=== PATIENT | male | born 1940 | race Caucasian/White ===

== ENCOUNTER 2018-02-16 10:54 | Observation (INO) | payer MEDICARE ==
[~2018-02-16] VITALS: Ht 154.9 cm; Wt 68.8 kg
[~2018-02-16 10:54] MED LIST: ALBU90OI INH; AMOCLA875 PO; ASPI325 PO; ATOR20 PO; BENZ100A PO; CARV6.25 PO; CEPH500 PO; CITA10S PO; CLOP75 PO; FURO40 PO; GEMF600 PO; GLIP10 PO; GLIP2.5ER PO; INSN100I SC; LEVE500 PO; LISI20 PO; LISI5 PO; METF500 PO; NICO21TP TOP; PANT40 PO; POTA10T PO; POTCHL20ER PO; Prednisone20 MG PO; Seroquel50 MG PO; Zithromax250 MG PO
[2018-02-16 12:16] LABS: BASOPHILS ABSOLUTE AUTO 0.02 K/mm3 (0.00-0.23); BASOPHILS PERCENT AUTO 0 % (0-2); EOSINOPHILS PERCENT AUTO 0 % (0-6); Hematocrit 42.5 % (37.0-53.0); Hemoglobin 14.5 g/dL (13.5-17.5); IMMATURE GRAN ABSOLUTE AUTO 0.07 K/mm3 (0.00-0.10); IMMATURE GRAN PERCENT AUTO 1 % (0-1); LYMPHOCYTES ABSOLUTE AUTO 0.95 K/mm3 (0.84-5.20); LYMPHOCYTES PERCENT AUTO 8 % (21-46); MONOCYTES ABSOLUTE AUTO 0.98 K/mm3 (0.16-1.47); MONOCYTES PERCENT AUTO 8 % (4-13); Mean Corpuscular HGB 30.6 pg (26.0-34.0); Mean Corpuscular HGB Conc 34.1 g/dL (31.5-36.5); Mean Corpuscular Volume 90 fL (80-100); Mean Platelet Volume 11.4 fL (9.1-12.4); NEUTROPHILS ABSOLUTE AUTO 10.14 K/mm3 (1.96-9.15); NEUTROPHILS PERCENT AUTO 83 % (41-73); Platelet Count 286 K/mm3 (150-400); RDW Coefficient Variation 12.7 % (11.7-14.2); RDW Standard Deviation 42.5 fL (35.1-46.3); Red Blood Cell Count 4.74 M/mm3 (4.30-5.90); White Blood Cell Count 12.16 K/mm3 (4.00-11.30)
[2018-02-16] MEDS ORDERED: Carvedilol12.5 MG PO (12:27)
[2018-02-16] MEDS ORDERED: PRED10 PO (12:27)
[2018-02-16] MEDS ORDERED: LEVFLO500 PO (12:27)
[2018-02-16] MEDS ORDERED: Citalopram HBr10 MG PO (12:27)
[2018-02-16 12:37] LABS: Albumin/Globulin Ratio 0.6 (0.8-1.8); Bilirubin, Total 0.4 mg/dL (0.1-1.0); Bun/Creatinine Ratio 33.1 (12.0-20.0); Calcium, Blood 9.1 mg/dL (8.5-10.1); Creatinine, Blood 1.27 mg/dL (0.60-1.20); Globulin, Blood 4.7 g/dL (2.2-4.0); Potassium, Blood 3.9 mmol/L (3.5-5.5); Total Protein, Blood 7.7 g/dL (6.4-8.2); Troponin I 0.021 ng/mL (0.000-0.040)
[2018-02-17 05:33] LABS: Hematocrit 38.7 % (37.0-53.0); Mean Corpuscular HGB 30.2 pg (26.0-34.0); Mean Corpuscular HGB Conc 33.6 g/dL (31.5-36.5); Mean Corpuscular Volume 90 fL (80-100); Mean Platelet Volume 11.3 fL (9.1-12.4); Platelet Count 238 K/mm3 (150-400); RDW Coefficient Variation 12.8 % (11.7-14.2); RDW Standard Deviation 42.6 fL (35.1-46.3); White Blood Cell Count 9.95 K/mm3 (4.00-11.30)
[2018-02-17 06:01] LABS: Bun/Creatinine Ratio 27.6 (12.0-20.0); Calcium, Blood 8.4 mg/dL (8.5-10.1); Creatinine, Blood 1.27 mg/dL (0.60-1.20); Potassium, Blood 3.9 mmol/L (3.5-5.5)
[2018-02-17] MEDS ORDERED: LEVFLO500 PO (10:46)
== END 2018-02-17 13:27 | disposition home health service (06) ==
LOC: ER 10:54 → MEDS 10:55
PROVIDERS: Emergency Medicine; Internal Medicine
DX: J18.9 Pneumonia, unspecified organism (principal); J40 Bronchitis, not specified as acute or chronic; I42.0 Dilated cardiomyopathy; I63.9 Cerebral infarction, unspecified; Q90.9 Down syndrome, unspecified; E11.9 Type 2 diabetes mellitus without complications; E78.5 Hyperlipidemia, unspecified; F17.200 Nicotine dependence, unspecified, uncomplicated; D72.829 Elevated white blood cell count, unspecified; N17.9 Acute kidney failure, unspecified; I11.0 Hypertensive heart disease with heart failure; I50.9 Heart failure, unspecified; I25.10 Atherosclerotic heart disease of native coronary artery without angina pectoris; Z79.2 Long term (current) use of antibiotics; Z95.0 Presence of cardiac pacemaker; Z79.899 Other long term (current) drug therapy; Z95.5 Presence of coronary angioplasty implant and graft
CPT/HCPCS: 36415; 71046; 80048; 80053; 82947; 83605; 83880; 84484; 85025; 85027; 87040; 93005; 93010; 94640; 96365; 96372; 96376; 99285; G0378; J1650; J1956; J7030

== ENCOUNTER 2018-09-18 01:06 | Emergency (ER) | payer MEDICARE ==
[~2018-09-18] VITALS: Ht 165.1 cm; Wt 77.1 kg
[~2018-09-18 01:06] MED LIST changes: +Carvedilol12.5 MG PO; +Citalopram HBr10 MG PO; +LEVFLO500 PO; +PRED10 PO
[2018-09-18 02:18] LABS: BASOPHILS ABSOLUTE AUTO 0.05 K/mm3 (0.00-0.23); BASOPHILS PERCENT AUTO 1 % (0-2); EOSINOPHILS ABSOLUTE AUTO 0.14 K/mm3 (0.00-0.68); EOSINOPHILS PERCENT AUTO 2 % (0-6); Hematocrit 42.9 % (37.0-53.0); Hemoglobin 13.8 g/dL (13.5-17.5); IMMATURE GRAN ABSOLUTE AUTO 0.03 K/mm3 (0.00-0.10); IMMATURE GRAN PERCENT AUTO 0 % (0-1); LYMPHOCYTES ABSOLUTE AUTO 1.31 K/mm3 (0.84-5.20); LYMPHOCYTES PERCENT AUTO 15 % (21-46); MONOCYTES ABSOLUTE AUTO 0.69 K/mm3 (0.16-1.47); MONOCYTES PERCENT AUTO 8 % (4-13); Mean Corpuscular HGB Conc 32.2 g/dL (31.5-36.5); Mean Corpuscular Volume 93 fL (80-100); Mean Platelet Volume 11.9 fL (9.1-12.4); NEUTROPHILS ABSOLUTE AUTO 6.67 K/mm3 (1.96-9.15); NEUTROPHILS PERCENT AUTO 75 % (41-73); Platelet Count 196 K/mm3 (150-400); RDW Coefficient Variation 14.4 % (11.7-14.2); RDW Standard Deviation 49.1 fL (35.1-46.3); White Blood Cell Count 8.89 K/mm3 (4.00-11.30)
[2018-09-18 02:31] LABS: Albumin, Blood 3.2 g/dL (3.4-5.0); Albumin/Globulin Ratio 0.9 (0.8-1.8); Bun/Creatinine Ratio 17.3 (12.0-20.0); Calcium, Blood 8.3 mg/dL (8.5-10.1); Creatinine, Blood 1.33 mg/dL (0.60-1.20); Globulin, Blood 3.5 g/dL (2.2-4.0); Magnesium, Blood 2.1 mg/dL (1.6-2.4); Potassium, Blood 3.8 mmol/L (3.5-5.5); Total Protein, Blood 6.7 g/dL (6.4-8.2); Troponin I 0.035 ng/mL (0.000-0.040)
[2018-09-18] MEDS ORDERED: Carvedilol12.5 MG PO (03:02)
[2018-09-18] MEDS ORDERED: Lasix20 MG PO (03:41)
== END 2018-09-18 06:19 | disposition home or self-care (01) ==
LOC: ER 01:06
PROVIDERS: Emergency Medicine
DX: I11.0 Hypertensive heart disease with heart failure (principal); I50.9 Heart failure, unspecified; E11.9 Type 2 diabetes mellitus without complications; I25.10 Atherosclerotic heart disease of native coronary artery without angina pectoris; F17.200 Nicotine dependence, unspecified, uncomplicated; Z79.899 Other long term (current) drug therapy
CPT/HCPCS: 71046; 80053; 83735; 83880; 84484; 85025; 93005; 93010; 96374; 99285-25; J1940

== ENCOUNTER 2018-09-23 22:59 | Observation (INO) | payer MEDICARE ==
[~2018-09-23] VITALS: Ht 165.1 cm; Wt 72.6 kg
[~2018-09-23 22:59] MED LIST changes: +Lasix20 MG PO
[2018-09-23 23:46] LABS: BASOPHILS ABSOLUTE AUTO 0.06 K/mm3 (0.00-0.23); BASOPHILS PERCENT AUTO 1 % (0-2); EOSINOPHILS ABSOLUTE AUTO 0.18 K/mm3 (0.00-0.68); EOSINOPHILS PERCENT AUTO 2 % (0-6); Hematocrit 44.3 % (37.0-53.0); Hemoglobin 13.8 g/dL (13.5-17.5); IMMATURE GRAN ABSOLUTE AUTO 0.02 K/mm3 (0.00-0.10); IMMATURE GRAN PERCENT AUTO 0 % (0-1); LYMPHOCYTES ABSOLUTE AUTO 0.95 K/mm3 (0.84-5.20); LYMPHOCYTES PERCENT AUTO 11 % (21-46); MONOCYTES ABSOLUTE AUTO 0.62 K/mm3 (0.16-1.47); MONOCYTES PERCENT AUTO 7 % (4-13); Mean Corpuscular HGB 29.1 pg (26.0-34.0); Mean Corpuscular HGB Conc 31.2 g/dL (31.5-36.5); Mean Corpuscular Volume 94 fL (80-100); Mean Platelet Volume 11.2 fL (9.1-12.4); NEUTROPHILS PERCENT AUTO 78 % (41-73); Platelet Count 207 K/mm3 (150-400); RDW Coefficient Variation 14.4 % (11.7-14.2); RDW Standard Deviation 49.7 fL (35.1-46.3); Red Blood Cell Count 4.74 M/mm3 (4.30-5.90); White Blood Cell Count 8.33 K/mm3 (4.00-11.30)
[2018-09-24 00:04] LABS: Albumin, Blood 3.2 g/dL (3.4-5.0); Albumin/Globulin Ratio 0.8 (0.8-1.8); Bilirubin, Total 0.7 mg/dL (0.1-1.0); Bun/Creatinine Ratio 16.8 (12.0-20.0); Calcium, Blood 8.4 mg/dL (8.5-10.1); Creatinine, Blood 1.49 mg/dL (0.60-1.20); Globulin, Blood 3.9 g/dL (2.2-4.0); Potassium, Blood 3.9 mmol/L (3.5-5.5); Total Protein, Blood 7.1 g/dL (6.4-8.2)
[2018-09-24 00:52] LABS: PCO2 Arterial 39.9 mmHg (35-45); PO2 Arterial 76.9 mmHg (80-100); pH Blood Arterial 7.43 (7.35-7.45)
[2018-09-24 01:02] LABS: Source, Urine Clean Catch
[2018-09-24 01:04] LABS: Bilirubin, Urine Neg (Neg); Blood, Urine 1+ (Neg); Glucose Qualitative, Urine Neg (Neg); Ketones, Urine Neg (Neg); Leukocyte Esterase, Urine Neg (Neg); Nitrite, Urine Neg (Neg); Protein, Urine 2+ (Neg); Specific Gravity, Urine 1.025 (1.003-1.022); Urobilinogen, Urine 1+ (Normal)
[2018-09-24 01:22] LABS: Appearance, Urine Clear (Clear); Color, Urine Yellow (P-Yellow)
[2018-09-24 01:23] LABS: Bacteria Few /hpf; Hyaline Casts 0-2 /lpf (0-2); Squamous Epithelial Cells Few /hpf (Few)
[2018-09-24 02:06] LABS: U Amphetamine Screen Not Detected; U Barbituate Screen Not Detected; U Benzodiazapine Screen Not Detected; U Buprenorphine Screen Not Detected; U Cannabinoids Screen Not Detected; U Cocaine Screen Not Detected; U Methadone Screen Not Detected; U Methamphetamine Screen Not Detected; U Opiates Screen Not Detected; U Oxycodone Screen Not Detected; U Phencyclidine Screen Not Detected; U Propoxyphene Screen Not Detected
[2018-09-24] MEDS ORDERED: POTCHL10ER PO (05:17)
[2018-09-24 12:38] LABS: Hematocrit 40.3 % (37.0-53.0); Hemoglobin 12.6 g/dL (13.5-17.5); Mean Corpuscular HGB 29.3 pg (26.0-34.0); Mean Corpuscular HGB Conc 31.3 g/dL (31.5-36.5); Mean Corpuscular Volume 94 fL (80-100); Mean Platelet Volume 11.2 fL (9.1-12.4); Platelet Count 165 K/mm3 (150-400); RDW Coefficient Variation 14.5 % (11.7-14.2); White Blood Cell Count 7.04 K/mm3 (4.00-11.30)
[2018-09-24 12:58] LABS: Albumin, Blood 2.8 g/dL (3.4-5.0); Albumin/Globulin Ratio 0.8 (0.8-1.8); Bilirubin, Total 0.7 mg/dL (0.1-1.0); Bun/Creatinine Ratio 17.4 (12.0-20.0); Calcium, Blood 8.2 mg/dL (8.5-10.1); Creatinine, Blood 1.38 mg/dL (0.60-1.20); Globulin, Blood 3.5 g/dL (2.2-4.0); Potassium, Blood 3.7 mmol/L (3.5-5.5); Total Protein, Blood 6.3 g/dL (6.4-8.2)
[2018-09-25 03:36] LABS: BASOPHILS ABSOLUTE AUTO 0.06 K/mm3 (0.00-0.23); BASOPHILS PERCENT AUTO 1 % (0-2); EOSINOPHILS ABSOLUTE AUTO 0.16 K/mm3 (0.00-0.68); EOSINOPHILS PERCENT AUTO 2 % (0-6); Hematocrit 39.5 % (37.0-53.0); Hemoglobin 12.5 g/dL (13.5-17.5); IMMATURE GRAN ABSOLUTE AUTO 0.01 K/mm3 (0.00-0.10); IMMATURE GRAN PERCENT AUTO 0 % (0-1); LYMPHOCYTES ABSOLUTE AUTO 1.42 K/mm3 (0.84-5.20); LYMPHOCYTES PERCENT AUTO 20 % (21-46); MONOCYTES PERCENT AUTO 9 % (4-13); Mean Corpuscular HGB 29.2 pg (26.0-34.0); Mean Corpuscular HGB Conc 31.6 g/dL (31.5-36.5); Mean Corpuscular Volume 92 fL (80-100); Mean Platelet Volume 11.2 fL (9.1-12.4); NEUTROPHILS ABSOLUTE AUTO 4.79 K/mm3 (1.96-9.15); NEUTROPHILS PERCENT AUTO 68 % (41-73); Platelet Count 188 K/mm3 (150-400); RDW Coefficient Variation 14.3 % (11.7-14.2); RDW Standard Deviation 48.7 fL (35.1-46.3); Red Blood Cell Count 4.28 M/mm3 (4.30-5.90); White Blood Cell Count 7.04 K/mm3 (4.00-11.30)
[2018-09-25 03:53] LABS: Bun/Creatinine Ratio 18.7 (12.0-20.0); Creatinine, Blood 1.5 mg/dL (0.60-1.20); Potassium, Blood 3.9 mmol/L (3.5-5.5)
[2018-09-28] MEDS ORDERED: CARV25 PO (09:44)
== END 2018-09-28 13:29 | disposition home or self-care (01) ==
LOC: DELPENDDIS → ER 22:59 → ICUW 09-24 04:55 → MEDS 09-24 05:48 → ICUW 09-24 06:06 → MEDS 09-25 17:20 → ENPENDDIS 09-26 15:34 → MEDS 09-28 13:29
PROVIDERS: Emergency Medicine; Hospitalist; Internal Medicine
DX: F03.90 Unspecified dementia, unspecified severity, without behavioral disturbance, psychotic disturbance, mood disturbance, and anxiety (principal); R62.50 Unspecified lack of expected normal physiological development in childhood; N17.9 Acute kidney failure, unspecified; E86.0 Dehydration; G93.41 Metabolic encephalopathy; I12.9 Hypertensive chronic kidney disease with stage 1 through stage 4 chronic kidney disease, or unspecified chronic kidney disease; E11.22 Type 2 diabetes mellitus with diabetic chronic kidney disease; E78.5 Hyperlipidemia, unspecified; I25.5 Ischemic cardiomyopathy; I25.10 Atherosclerotic heart disease of native coronary artery without angina pectoris; F17.200 Nicotine dependence, unspecified, uncomplicated; N18.3 Chronic kidney disease, stage 3 (moderate); L03.115 Cellulitis of right lower limb; L03.116 Cellulitis of left lower limb; Z86.73 Personal history of transient ischemic attack (TIA), and cerebral infarction without residual deficits; Z79.899 Other long term (current) drug therapy
CPT/HCPCS: 36415; 36600; 70450; 71046; 80048; 80053; 81001; 82803; 82947; 85025; 85027; 93005; 93010; 96365; 96366; 96372; 96375; 96376; 97161; 97530; 99285-25; G0378; G0480; G8978; G8979; J0690; J1650; J1940; J7030; J7050

== ENCOUNTER 2018-10-20 07:12 | Inpatient (IN) | payer MEDICARE ==
[~2018-10-20] VITALS: Ht 177.8 cm; Wt 68.4 kg
[~2018-10-20 07:12] MED LIST changes: +CARV25 PO; +POTCHL10ER PO
[2018-10-20 07:59] LABS: BASOPHILS ABSOLUTE AUTO 0.04 K/mm3 (0.00-0.23); BASOPHILS PERCENT AUTO 0 % (0-2); EOSINOPHILS ABSOLUTE AUTO 0.03 K/mm3 (0.00-0.68); EOSINOPHILS PERCENT AUTO 0 % (0-6); Hematocrit 41.5 % (37.0-53.0); Hemoglobin 12.9 g/dL (13.5-17.5); IMMATURE GRAN ABSOLUTE AUTO 0.05 K/mm3 (0.00-0.10); IMMATURE GRAN PERCENT AUTO 0 % (0-1); LYMPHOCYTES ABSOLUTE AUTO 0.96 K/mm3 (0.84-5.20); LYMPHOCYTES PERCENT AUTO 7 % (21-46); MONOCYTES ABSOLUTE AUTO 0.87 K/mm3 (0.16-1.47); MONOCYTES PERCENT AUTO 7 % (4-13); Mean Corpuscular HGB 28.1 pg (26.0-34.0); Mean Corpuscular HGB Conc 31.1 g/dL (31.5-36.5); Mean Corpuscular Volume 90 fL (80-100); Mean Platelet Volume 10.9 fL (9.1-12.4); NEUTROPHILS ABSOLUTE AUTO 11.03 K/mm3 (1.96-9.15); NEUTROPHILS PERCENT AUTO 85 % (41-73); Platelet Count 224 K/mm3 (150-400); RDW Coefficient Variation 15.7 % (11.7-14.2); RDW Standard Deviation 51.5 fL (35.1-46.3); Red Blood Cell Count 4.59 M/mm3 (4.30-5.90); White Blood Cell Count 12.98 K/mm3 (4.00-11.30)
[2018-10-20 08:19] LABS: Albumin, Blood 2.7 g/dL (3.4-5.0); Albumin/Globulin Ratio 0.7 (0.8-1.8); Bilirubin, Total 0.7 mg/dL (0.1-1.0); Calcium, Blood 8.1 mg/dL (8.5-10.1); Creatinine, Blood 1.27 mg/dL (0.60-1.20); Globulin, Blood 3.8 g/dL (2.2-4.0); Potassium, Blood 4.5 mmol/L (3.5-5.5); Total Protein, Blood 6.5 g/dL (6.4-8.2); Troponin I 0.027 ng/mL (0.000-0.040)
--- NOTE | 2018-10-20 18:16 | NUR ---
SUMMARY: RECEIVED REPORT AND ASSUMED CARE OF PATIENT. PT ARRIVED FROM [facility] AND CATH PROCEDURE. PT USING 2 LPM VIA NC, O2 SAT ABOVE 95%. PLACED RESTRAINTS FOR SAFETY PER DR. DOCKERY VERBAL ORDER AT 1721. HEPARIN RUNNING AT 500 UNITS/HOUR. TPA RUNNING INTO SHEATH AT 0.5 MG/HR. SEE DR. DOCKERY NOTE FOR ORDERS R/T MANAGEMENT OF SHEATH AND FURTHER INSTRUCTIONS. FENTYNAL AND PRECEDEX AVALIABLE FOR SEDATION. PLACED CONDOM CATH, DRAINING TO GRAVITY. WILL CONTINUE TO MONITOR AND GIVE REPORT TO NOC RN.
--- NOTE | 2018-10-20 19:45 | NUR ---
ASSESSMENT ASSUMED CARE OF PT. PT SLEEPING WITH O2 AT 2 LITERS VIA NC. AWAKENS TO VERBAL STIMULI. PT CONFUSED AND CALLING OUT,"MAMA". TRIED TO REORIENT PT. LUNGS WITH EXP WHEEZES AND DECREASED. NONPRODUCTIVE COUGH NOTED. HEART RATE 100% PACED. BP STABLE. BT+ ABD SOFT AND NONTENDER. VENOUS SHEATH TO LEFT CEPHALIC WITH TPA INFUSING AT 0.5 MG/HR. ARM BOARD ON. BILAT WRIST RESTRAINTS ON DUE TO PT PULLING AT LINES AND CONFUSION. IV 20G TO RIGHT HAND WITH HEPARIN AT 500 UNITS/HR, 10 ML/HR. CONDOM CATH ON. ATTENDS PLACED AND PT REPOSITIONED. PT BACK TO SLEEP WHEN UNDISTURBED. FIBRIGIN LEVEL DRAWN BY LAB.
--- NOTE | 2018-10-20 21:18 | NUR ---
LAB RESULTS FIBRINOIGEN LEVEL 262, CONT TPA TO LEFT ARM SHEATH. REPEAT FIBRINOGEN LEVEL AT 0200. PT SLEEPING
--- NOTE | 2018-10-20 22:00 | NUR ---
CALL OUT TO HOSPITALIST REGADING DIABETIC MANAGEMENT
--- NOTE | 2018-10-20 22:08 | NUR ---
DIABETIC MANAGEMENT TALKED WITH LIZ VALDES HOSPITALIST, RECEIVED ORDER FOR BLOOD GLUCOSE Q6HR
--- NOTE | 2018-10-20 22:25 | NUR ---
PT SLEEPING, AWAKENS TO VERBAL STIMULI. CALLS OUT,"MAMA". REORIENTED. ATTENDS CHANGED. CONDOM CATH CAME OFF. REPOSITIONED. BILAT RESTRAINTS ON. BED ALARM ON. NONPRODUCTIVE COUGH NOTED
--- NOTE | 2018-10-21 00:05 | NUR ---
REASSESSMENT PT SLEEPING, AWAKENS TO VERBAL STIMULI. PT CONFUSED CALLING STAFF, "MAMA". REORIENTED TO PLACE AND TIME. PT STATES,"I'M HUNGREY. WHAT TIME IS IT"? EXPLAINED TIME AND PT STATED,"NO WONDER I'M HUNGREY". LUNGS WITH WHEEZES ON 2 LITERS O2 VIA NC. RESP EVEN AND NONLABORED. SPO2 98%. HEART RATE 100% PACED. BP STABLE. LEFT ARM WITH SHEATH INTACT. HAND COOL WITH PALP PULSE. SLIGHT BLEEDING NOTED AROUND SHEATH. PT INCONT URINE, ATTENDS CHANGED AND SKIN CARE DONE. BILAT WRIST RESTRAINTS ON. BED ALARM ON. PT BACK TO SLEEP QUICKLY AFTER BLOOD GLUCOSE DONE
--- NOTE | 2018-10-21 02:00 | NUR ---
PT SLEEPING, AWAKENS EASILY FOR LAB DRAW. PT YELLING,"WHERE AM I. I'M HUNGRY". ATTENDS CHANGED AND PT REPOSITIONED. PT STATES,"IT 1933" REORIENTED TO PLACE AND YEAR. ASSISTED WITH EATING PUDDING AND YOGURT. PT ASKED FOR THE TV TO BE TURNED ON-DONE. PT THAN BACK TO SLEEP
[2018-10-21 02:28] LABS: Bun/Creatinine Ratio 22.3 (12.0-20.0); Calcium, Blood 7.8 mg/dL (8.5-10.1); Creatinine, Blood 1.39 mg/dL (0.60-1.20); Potassium, Blood 3.9 mmol/L (3.5-5.5)
--- NOTE | 2018-10-21 03:12 | NUR ---
FIBRINIGEN LEVEL FIBRINOGEN LEVEL AT 257, CONT TPA AT CURRENT RATE. REPEAT LEVEL AT 0800
--- NOTE | 2018-10-21 04:00 | NUR ---
REASSESSMENT PT SLEEPING BUT AWAKENS EASILY TO VERBAL STIMULI. SPEECH CLEARER AND PT ABLE TO MAKE DEMANDS KNOWN. LUNGS CONT WHEEZE ON 2 LITERS VIA NC. HEART RATE 100% PACED. BP STABLE. INCONT URINE. ATTENDS CHANGED. LEFT ARM WITH SHEATH INTACT AND TPA INFUSING AT 10 ML/HR. REPOSITIONED PT. BILAT WRIST RESTRAINTS ON. BED ALARM ON. ASSISTED PT WITH EATING YOGURT. REORIENTED FREQUENTLY.
--- NOTE | 2018-10-21 04:30 | NUR ---
PT HAD 15 BEAT RUN OF V TACH. PACED OUT OF IT. VSS. DENIES PAIN.
--- NOTE | 2018-10-21 06:10 | NUR ---
SHIFT SUMMARY PT SLEEPING MOST OF THE NIGHT. REORIENTED FREQUENTLY. BILAT SOFT WRIST RESTRAINTS ON. FIBIROGEN LEVEL CHECKED Q6 HR. NEXT CHECK AT 0800. SHEATH TO LEFT CEPHALIC WITH TPA T 0.5 MG/HR. NO BLEEDING FROM SITE AT THIS TIME. ARM BOARD ON. DISTAL PULSE PRESENT. VSS. INCONT OF URINE, FREQUENT ATTEND CHANGES. TURNED Q2HR. ASSISTED WITH FEEDING PUDDING AND YOGURT. PT TOOK WITHOUT DIFFICULTY. LUNGS CONT WITH WHEEZES ON 2 LITERS O2 VIA NC. NONPRODUCTIVE COUGH NOTED. HOB UP AT ALL TIMES. HEPARIN GTT VIA 20G IV TO RIGHT HAND AT 500 UNIT/HR, 10 ML/HR. BED ALARM ON. REPORT TO ON COMING NURSE
--- NOTE | 2018-10-21 07:45 | NUR ---
DR. LEMON IN TO SEE PATIENT.
--- NOTE | 2018-10-21 08:14 | NUR ---
INITIAL ASSESSMENT PATIENT SLEEPING SOUNDLY UPON ENTERING ROOM. PATIENT HAS HISTORY OF BEING MENTALLY DELAYED. PATIENT HAS BEEN WAKING FROM SLEEP AND YELLING "I'M HUNGRY!" AND THEN GOING RIGHT BACK TO SLEEP. PATIENT CONFUSED- ONLY ORIENTED TO SELF AND FOLLOWING DIRECTIONS AT THIS TIME. SPEECH IS SLURRED. EXTREMITIES WEAK, HOWEVER R ARM IS WEAKER THAN OTHER EXTREMITIES. PATIENT DOES NOT HAVE ANY SIGNS OF PAIN. PATIENT AFEBRILE. PATIENT WAS ON 2 L NC, PATIENT TITRATED TO RA AND IS SATTING WELL. PATIENT HAS WHEEZES NOTED T/O ALL LUNG LOBES. PATIENT HAS MOIST, NONPRODUCTIVE COUGH. PATIENT IS 100% PACED, HR 70S TO 80S. BP STABLE. BILAT RADIAL AND TIBIAL PULSES 1+ IN STRENGTH, PEDAL PULSES 2+ IN STRENGTH. 1+ EDEMA NOTED IN RLE, 2+ EDEMA NOTED IN LUE. ABDOMEN SOFT, NONTENDER, WITH HYPERACTIVE BS. LAST BM ON THE . PATIENT INCONTINENT OF YELLOW URINE- ATTENDS IN PLACE. SCABS TO RIGHT HAND AND BLES. SHEATH TO LEFT CEPHALIC VEIN, ARM SWOLLEN. DIRECTIONS TO REMOVE SHEATH ONCE FIBRINOGEN IS BELOW 160. HEPARIN INFUSING AT 500 UNITS/ HOUR, TPA INFUSING AT 0.5 MG/ HOUR. BED LOW, CALL LIGHT IN REACH. WILL CONTINUE TO MONITOR PATIENT FREQUENTLY THROUGHOUT SHIFT.
--- NOTE | 2018-10-21 09:32 | NUR ---
SPEECH THERAPY IN TO SEE PATIENT.
[2018-10-21] MEDS ORDERED: Coreg12.5 MG PO (11:19)
[2018-10-21] MEDS ORDERED: PANT40 PO (11:23)
[2018-10-21] MEDS ORDERED: LEVE500 PO (11:23)
[2018-10-21] MEDS ORDERED: QUET25 PO (11:24)
[2018-10-21] MEDS ORDERED: Celexa10 MG PO (11:26)
[2018-10-21] MEDS ORDERED: LISI5 PO (11:27)
[2018-10-21] MEDS ORDERED: ATOR10 PO (11:28)
[2018-10-21] MEDS ORDERED: MULTIVITAMIN PO (11:29)
[2018-10-21] MEDS ORDERED: ASPI81CH PO (11:29)
--- NOTE | 2018-10-21 12:06 | NUR ---
PATIENT SITTING UP GETTING FED LUNCH BY INSULATION MECHANIC. PATIENT HAS NO COMPLAINTS. VSS. NO ACUTE CHANGES TO NOTE ON. WILL CONTINUE TO MONITOR.
--- NOTE | 2018-10-21 12:45 | NUR ---
MECHANICAL ENGINEERING DIRECTOR HERE TO TALK TO PATIENT'S HEALTH CARE PROXY AND COUSIN LINDY.
--- NOTE | 2018-10-21 14:49 | NUR ---
NOTICED THAT LEFT ARM APPEARS BIGGER IN SIZE. COBAN AND ARM BOARD REMOVED FROM ARM. ONLY ABLE TO PULL BACK ABOUT 1 CC OF BLOOD FROM LEFT CEPHALIC SHEATH. SHEATH APPEARS TO FLUSH WELL. CHARGE NURSE INFORMED. ARM ELEVATED ON PILLOW. PATIENT HAND RE-RESTRAINED. ARM MEASURED AROUND WIDEST PART AT TOP OF ARM- 15 INCHES IN DIAMETER. MARKER LINES PRESENT IN ORDER TO RE-MEASURE CORRECTLY.
--- NOTE | 2018-10-21 15:11 | NUR ---
KACEY CALLED AT 1445 TO INFORM OF NURSE'S CONCERNS. STATED THAT IT WOULD BE BEST TO CALL DR. DOCKERY. DR. DOCKERY CALLED AND SPOKE TO AT 1448. DR. DOCKERY STATED THAT HE WAS NOT CONCERNED. DR. DOCKERY ORDERED TO DC THE TPA, REMOVE SHEATH HALF AN HOUR AFTER TPA TURNED OFF AND TO HAVE PHARMACY MANAGE HEPARIN INFUSION. DR. DOCKERY STATED TO HAVE HOSPITALIST BRIDGE PATIENT OVER TO EITHER [facility], COUMADIN, OR XARELTO. DR. LEMON CALLED AT 1500 TO INFORM OF CHANGES AND THAT DR. DOCKERY WOULD LIKE FOR HIM TO BRIDGE PATIENT. ORDERS RECEIVED. TPA OFF AT 1500. WILL CONTINUE TO MONITOR.
--- NOTE | 2018-10-21 16:41 | NUR ---
PATIENT GIVEN PAIN MEDICATION AND SHEATH PULLED AT 1624. MANUAL PRESSURE HELD FOR 10 MINUTES. NO BLEEDED NOTED. SITE CLEANED BEFORE AND AFTER SHEATH REMOVAL. TEGADERM PLACED. WILL CONTINUE TO MONITOR.
--- NOTE | 2018-10-21 17:11 | NUR ---
INFORMED DR. LEMON THAT PATIENT'S MEDICATION RECONCILIATION HAS BEEN COMPLETED.
--- NOTE | 2018-10-21 18:26 | NUR ---
REPORT GIVEN TO ONCOMING NURSE ON MEDICAL FLOOR. PATIENT GOING TO ROOM 355.
--- NOTE | 2018-10-21 19:25 | NUR ---
SHIFT SUMMARY- PT TRANSFERED TO MEDICAL FLOOR FROM ICU, RECIEVED REPORT FROM FILIPE GARCIA PT ON HEPRIN DRIP, SPOKE TO CHADWICK IN THE PHARMACY TO VERIFY RATE, VERIFIED RATE CORRECT WITH FILIPE GARCIA. PT ARRIVED JUST PRIOR TO SHIFT CHANGE, BEDSIDE REPORT GIVEN TO NIGHT FILIPE MCQUEEN. PT SLEEPING AT THE TIME OF REPORT, WAKING ONLY TO YELL OUT "I'M HUNGRY!" AND THEN GO STRAIGHT BACK TO SLEEP.
[2018-10-22 04:44] LABS: Hematocrit 33.1 % (37.0-53.0); Hemoglobin 10.3 g/dL (13.5-17.5); Mean Corpuscular HGB 28.4 pg (26.0-34.0); Mean Corpuscular HGB Conc 31.1 g/dL (31.5-36.5); Mean Corpuscular Volume 91 fL (80-100); Mean Platelet Volume 11.1 fL (9.1-12.4); Platelet Count 163 K/mm3 (150-400); RDW Coefficient Variation 15.7 % (11.7-14.2); RDW Standard Deviation 52.4 fL (35.1-46.3); Red Blood Cell Count 3.63 M/mm3 (4.30-5.90)
[2018-10-22 05:06] LABS: Bun/Creatinine Ratio 19.1 (12.0-20.0); Calcium, Blood 7.6 mg/dL (8.5-10.1); Creatinine, Blood 1.41 mg/dL (0.60-1.20); Potassium, Blood 3.7 mmol/L (3.5-5.5)
--- NOTE | 2018-10-22 05:38 | NUR ---
SHIFT SUMMARY: PT IS ALERT AND ORIENTED TO SELF AND FOLLOWING DIRECTIONS. PT IS EASILY AGITATED AND CALLS OUT OFTEN. PT NOT UP OUT OF BED OVERNIGHT, MAX ASSIST. PT INCONTINENT SEVERAL TIMES, CHANGED AND CLEANED NEEDED, DID CALL FOR THE URINAL ON ONE OCCASION. HEPARIN CONTINUING TO RUN, RATE UNCHANGED. PT SHOWS NO S/S FOR PAIN, NAUSEA, VOMITING, OR SOB. NO ACUTE CHANGES OR COMPLICATIONS THIS SHIFT. BED IN LOW POSITION, CALL LIGHT WITHIN REACH, BED ALARM SET. WILL REPORT TO DAY NURSE.
--- NOTE | 2018-10-22 14:20 | NUR ---
PATIENT MOVED TO SCU ROOM 349. REPORT GIVEN TO SHRUTI ALCOCER AT 1325 WHO ASSUMED CARE UPON TRANSFER.
--- NOTE | 2018-10-22 17:32 | NUR ---
SUMMARY PT TRANSFER TO [facility]U FROM [place] [id number]. HE HAS HX DEVELOPMENTALLY DELAYED, SOMEWHAT CHILDLIKE AFFECT. ANSWERS BASIC QUESTIONS APPROPRIATELY. STATE NO PAIN. HE YELLS OUT @ [facility] FOR ASSIST INSTEAD OF USING CALL LIGHT. HX CVA W R SIDED WEAKNESS. REPORT THAT PT IS NONAMBULATORY, ABLE TO STAND/PIVOT TO BSC. HE IS IN ATTENDS HOWEVER PER REPORT YELLS OUT WHEN NEEDS URINAL. LUE EDEMATOUS, ECCHYMOTIC. S/P LUE THROMBOECTOMY, OPSITE COVERING ACCESS SITE. ELEVATED ON PILLOW. PT IS NOT TO PUSH OR PULL WITH L ARM. DX CHF EXAC, BLE EDEMA 2+, STRICT I&O. LUNG SOMEWHAT DECREASED WITH CRACKLES BASES, HE IS ON ROOM AIR. PT HAS BEEN CALM WATCHING TV SINCE TRANSFER TO SCU, @ [facility] CALLS OUT FOR ASSIST. WILL REQUIRE ASSIST WITH DINNER.
--- NOTE | 2018-10-22 18:05 | NUR ---
PATIENTS ATTENDS WERE CHECKED AND THEY WERE CLEAN AND DRY.
--- NOTE | 2018-10-23 04:45 | NUR ---
SUMMARY: PT HAS HX OF D.D. W/CHILDLIKE AFFECT AND ANSWERS SPECIFIC Q'S APPROPRIATELY. HE DOESN'T USE HIS CALL LIGHT BUT INSTEAD YELLS INTO HALLS TO SPECIFY HIS NEEDS. HE FREQ REQUESTS SNACKS AND WATER. NECTAR THICK LIQ'S AND PUREED SNACKS PROVIDED PRN. FEEDER ASSIST REQ'D D/T R.ARM FLACIDITY (HX CVA) AND L.ARM IMMOBILE POST THROMBOECTOMY AND SHEATH PLACEMENT FOR DVT. ROGELIO INTO RIBS ARE EXTENSIVELY BRUISED AND SWOLLEN. OPSITE DX IS C/D/I. BILAT HANDS AND BLE EDEMATOUS WELL. HE WAS ASSISTED W/URINAL AT TIMES BUT WAS MOSTLY INCONTINENT. HE HAD XL BM THIS SHIFT W/CREAM APPLIED TO PINK JOLENE AREA AND BUTTOCKS. TURN SCHEDULE MAINTAINED AND PILLOW PLACED FOR SUPPORT. LS DIM T/O W/INTERMITTENT CRACKLES TO BASES. PT HAS STRONG DEFLASH AND WASH OPERATOR COUGH TO CLEAR SECRETIONS. NO ACUTE CHANGES, VSS/AFEBRILE. BED ALARM ON FOR SAFETY. WILL MONITOR AND REPORT TO DAY RN.
[2018-10-23 05:33] LABS: Bun/Creatinine Ratio 15.2 (12.0-20.0); Calcium, Blood 7.6 mg/dL (8.5-10.1); Creatinine, Blood 1.58 mg/dL (0.60-1.20)
--- NOTE | 2018-10-23 15:49 | NUR ---
PT IS A/OX2, PLEASANT AND COOPERATIVE, THE PT IS BEDREST AT THIS TIME, PT HAS LAREGE BRUISED AREA UP LEFT ARM AND LEFT CHEST, PT HAS RIGHT SIDE WEAKNESS FROM PAST STROKE, THE PT DENIED ANY PAIN THIS AM, PT APPEARS TO BE BREATHING EASILY AT REST ON RA, PTS COUSIN AT THE BEDSIDE T/O THE DAY, CALL LIGHT IN REACH
--- NOTE | 2018-10-24 05:03 | NUR ---
SUMMARY: PT A/OX2 W/D.D AND CHILDLIKE AFFECT. HE DOESN'T USE HIS CALL LIGHT BUT INSTEAD YELLS INTO HALLS TO SPECIFY NEEDS. HE WAS MOSTLY COOPERATIVE BUT BECAME GRUMPY AT TIMES AND WANTED TO REFUSE CARE. REASSURANCE PROVIDED AND PT WOULD CALM. TURN SCHEDULE MAINTAINED AND ATTENDS CHANGED FOR URINARY INCONTINENCE PRN. BUTTOCKS AND JOLENE AREA PINK, LOTION APPLIED FOR SBD PREVENTION. PT HAS URGENCY TO VOID AND URINAL USED EFFECTIVELY W/STAFF ASSIST WHEN ABLE. FEEDER REQUIRED FOR SNACKS AND NECTAR THICK LIQ'S. EXTENSIVE BRUISING AND SWELLING REMAINS TO L.UA AND RIBS POST THROMBOECTOMY AND SHEATH PLACEMENT. OPSITE DX IS C/D/I. R.SIDE WEAKNESS FROM HX CVA. HANDS SWOLLEN AND BLE EDEMA NOTED WELL. PT CONT'S TO COUGH AND CLEAR SECRETIONS BUT LS FLUCTUATE BETWEEN DIM AND COARSE. NO ACUTE CHANGES, VSS/AFEBRILE. WILL MONITOR AND REPORT TO DAY RN.
[2018-10-24 05:10] LABS: BASOPHILS ABSOLUTE AUTO 0.04 K/mm3 (0.00-0.23); BASOPHILS PERCENT AUTO 1 % (0-2); EOSINOPHILS ABSOLUTE AUTO 0.13 K/mm3 (0.00-0.68); EOSINOPHILS PERCENT AUTO 2 % (0-6); Hematocrit 30.7 % (37.0-53.0); Hemoglobin 9.6 g/dL (13.5-17.5); IMMATURE GRAN ABSOLUTE AUTO 0.05 K/mm3 (0.00-0.10); IMMATURE GRAN PERCENT AUTO 1 % (0-1); LYMPHOCYTES ABSOLUTE AUTO 1.19 K/mm3 (0.84-5.20); LYMPHOCYTES PERCENT AUTO 14 % (21-46); MONOCYTES ABSOLUTE AUTO 0.63 K/mm3 (0.16-1.47); MONOCYTES PERCENT AUTO 7 % (4-13); Mean Corpuscular HGB 27.7 pg (26.0-34.0); Mean Corpuscular HGB Conc 31.3 g/dL (31.5-36.5); Mean Corpuscular Volume 89 fL (80-100); NEUTROPHILS ABSOLUTE AUTO 6.52 K/mm3 (1.96-9.15); NEUTROPHILS PERCENT AUTO 76 % (41-73); Platelet Count 179 K/mm3 (150-400); RDW Coefficient Variation 15.9 % (11.7-14.2); RDW Standard Deviation 51.7 fL (35.1-46.3); Red Blood Cell Count 3.46 M/mm3 (4.30-5.90); White Blood Cell Count 8.56 K/mm3 (4.00-11.30)
[2018-10-24 05:31] LABS: Albumin, Blood 2.3 g/dL (3.4-5.0); Anion Gap 6 mmol/L (6-16); Blood Urea Nitrogen 24 mg/dL (8-24); Bun/Creatinine Ratio 17.8 (12.0-20.0); CO2, Blood 32 mmol/L (21-32); Calcium, Blood 7.7 mg/dL (8.5-10.1); Chloride, Blood 98 mmol/L (98-108); Creatinine, Blood 1.35 mg/dL (0.60-1.20); Glomerular Filtration Rate 55 (60-); Glucose, Blood 165 mg/dL (70-99); Potassium, Blood 4.3 mmol/L (3.5-5.5); Sodium, Blood 136 mmol/L (136-145)
--- NOTE | 2018-10-24 12:42 | NUR ---
PATIENT PERMISSION PATIENT GAVE STUDENT NURSE PERMISSION TO PROVIDE CARE ON 10/25/18 FROM 0630 TO 1200.
--- NOTE | 2018-10-24 19:11 | NUR ---
NO ACUTE CHANGES NOTED THIS SHIFT, PT'S COUSIN LINDY IN FOR SEVERAL HOURS TODAY VISITING, PT DENIES PAIN AND DISCOMFORT. WILL CONTINUE TO MONITOR AND REPORT TO ONCOMING RN
--- NOTE | 2018-10-25 05:30 | NUR ---
VSS, AFEBRILE, A/O BUT CONFUSED/FORGETFUL AT TIMES, [place], TALKS VERY LOUDLY, CALLS OUT FOR THE URINAL, DEVELOPMENTALLY DELAYED, 20G R WRIST, DVT IN L UA, SEVERE BRUISING IN THAT AREA, EDEMA HANDS/FEET BILATTERALY, PACER. PMHX: CVA, DM, HTN, CHF, ACUTE ON CHRONIC RENAL FAILURE. ABLE TO STAND AND PIVOT, BUT CANNOT WALK. CBG ACHS, PLACEMENT ISSUE, COUSIN LINDY IS POA
--- NOTE | 2018-10-25 13:05 | NUR ---
PT'S AND A MALE VISITOR INTO VISIT WHILE THIS RN AT LUNCH. VISITOR TRANSFERRED PT TO CHAIR OVER WOOD FUEL PELLETIZER OBJECTIONS. WOOD FUEL PELLETIZER CALLED ME TO ROOM, WHEN I ARRIVED PT WAS IN BEDSIDE CHAIR, AND VISITOR WERE WANTING TO TAKE PT OUTSIDE. PT VERY SLEEPY, PT NEEDS TO STAY INSIDE. MALE VISITOR THEN LEFT, FOLLOWED SHORTLY.
--- NOTE | 2018-10-25 15:18 | NUR ---
LEFT ARM RESTRICTIONS T/C TO DR DOCKERY REGARDING ORDERED LEFT ARM RESTRICTIONS. EATING, PUSHING AND PULLING RESTRICTIONS DISCONTINUED. MAY WORK WITH THERAPIES AT THIS TIME.
--- NOTE | 2018-10-25 19:26 | NUR ---
NO ACUTE CHANGES NOTED THIS SHIFT, PT'S VISITED FOR A VERY SHORT TIME, HIS COUSIN LINDY WAS HERE FOR SEVERAL HOURS. CALLS OUT WHEN HUNGRY OR NEEDING THE URINAL. HAS DENIES PAIN T/O THE SHIFT. WILL CONTINUE TO MONITOR AND REPORT TO ONCOMING RN.
[2018-10-26 05:17] LABS: BASOPHILS ABSOLUTE AUTO 0.06 K/mm3 (0.00-0.23); BASOPHILS PERCENT AUTO 1 % (0-2); EOSINOPHILS ABSOLUTE AUTO 0.21 K/mm3 (0.00-0.68); EOSINOPHILS PERCENT AUTO 2 % (0-6); Hematocrit 33.7 % (37.0-53.0); Hemoglobin 10.4 g/dL (13.5-17.5); IMMATURE GRAN ABSOLUTE AUTO 0.05 K/mm3 (0.00-0.10); IMMATURE GRAN PERCENT AUTO 1 % (0-1); LYMPHOCYTES ABSOLUTE AUTO 1.01 K/mm3 (0.84-5.20); LYMPHOCYTES PERCENT AUTO 9 % (21-46); MONOCYTES ABSOLUTE AUTO 1.09 K/mm3 (0.16-1.47); MONOCYTES PERCENT AUTO 10 % (4-13); Mean Corpuscular HGB 27.6 pg (26.0-34.0); Mean Corpuscular HGB Conc 30.9 g/dL (31.5-36.5); Mean Corpuscular Volume 89 fL (80-100); Mean Platelet Volume 10.9 fL (9.1-12.4); NEUTROPHILS ABSOLUTE AUTO 8.32 K/mm3 (1.96-9.15); NEUTROPHILS PERCENT AUTO 77 % (41-73); Platelet Count 213 K/mm3 (150-400); RDW Coefficient Variation 15.9 % (11.7-14.2); RDW Standard Deviation 52.2 fL (35.1-46.3); Red Blood Cell Count 3.77 M/mm3 (4.30-5.90); White Blood Cell Count 10.74 K/mm3 (4.00-11.30)
[2018-10-26 05:34] LABS: Albumin, Blood 2.4 g/dL (3.4-5.0); Anion Gap 7 mmol/L (6-16); Blood Urea Nitrogen 27 mg/dL (8-24); Bun/Creatinine Ratio 21.1 (12.0-20.0); CO2, Blood 31 mmol/L (21-32); Calcium, Blood 7.7 mg/dL (8.5-10.1); Chloride, Blood 102 mmol/L (98-108); Creatinine, Blood 1.28 mg/dL (0.60-1.20); Glomerular Filtration Rate 58 (60-); Glucose, Blood 148 mg/dL (70-99); Phosphorus, Blood 2.9 mg/dL (2.5-4.9); Potassium, Blood 3.9 mmol/L (3.5-5.5); Sodium, Blood 140 mmol/L (136-145)
--- NOTE | 2018-10-26 05:55 | NUR ---
NOC SHIFT SUMMARY PT HAS HAD PERIODS OF COMPLIANCE AND NONCOMPLIANCE WITH CARE THIS NIGHT. AT TIMES FOLLOWS DIRECTIONS AND AT TIMES REFUSES. REQUIRED INSULIN COVERAGE BASED ON SLIDING SCALE. VOIDED SEVERAL TIMES WITH 1 LARGE BOWEL MOVEMENT. DENIES PAIN, SOB, NAUSEA. WILL CONTINUE TO MONITOR
--- NOTE | 2018-10-26 07:31 | NUR ---
This student nurse was given permission by RN to access patient information.
--- NOTE | 2018-10-26 18:24 | NUR ---
SHIFT SUMMARY PT IN BED SLEEPING ON AND OFF TODAY. REPORTS BEING HUNGRY WHENEVER HE IS AWAKE. USES URINAL BUT INCONTNENT AT TIMES WELL. R HAND ESSENTIALLY FLACCID BUT IS WEAK ON R LEG. COUSIN IN TO VISIT THIS MORNING. CURRENLTY ON NECTAR THICK LIQUIDS. APPEARS HARD OF HEARING. SIGNIFICANT BRUISING TO L ARM, CHEST AND BACK.
--- NOTE | 2018-10-27 07:18 | NUR ---
NOC SHIFT SUMMARY PT RELAXED IN BED THIS NIGHT. DID OFTEN CALL OUT THE HE WAS HUNGRY AND HAD TO URINATE. APPROPRIATE FOOD AND DRINK WERE GIVEN AND URINAL WAS PROVIDED. HE HAS BEEN INTERMITENTLY COMPLIANT AND NONCOMPLIANT WITH NURSING CARE. WILL CONTINUE TO MONITOR. CURRENTLY IN NO ACUTE DISTRESS.
--- NOTE | 2018-10-27 14:29 | NUR ---
ASSISTED UP TO CHAIR WITH P.T. THIS MORNING AND WAS ABLE TO FEED HIMSELF WITH NO S/S OF COUGH OR ASPIRATION. LIQUIDS WITH SPOONS IN THEM TO ENCOURAGE USE OF SPOONING DRINKS. COUSIN AT BEDSIDE ON AND OFF TODAY.
--- NOTE | 2018-10-27 19:32 | NUR ---
SHIFT SUMMARY PT UP IN RECLINER CHAIR MOST OF DAY. COUSIN AT BEDSIDE. PT OCC YELLS OUT TO WEEWEE AND THAT HE IS HUNGRY. NO CHANGE TODAY.
--- NOTE | 2018-10-28 05:19 | NUR ---
NOC SHIFT SUMMARY NO ACUTE CHANGES NOTED. PT HAS SPENT THE NIGHT IN BED MOSTLY SLEEPING THOUGH HAS HAD PERIODS OF WAKEFULLNESS. CALLS OUT WHEN HE NEEDS TO URINATE DESPITE BEING EDUCATED CUSTOMER SUPPORT ASSISTANT LIGHT.
--- NOTE | 2018-10-28 17:34 | NUR ---
Spoke with patient and patient's cousin, Elpidio, whom is also the patient's POA. Reviewed medications and care with Elpidio and the patient. Pt chips into the conversation with very funny comments; it was a good visit for all parties. Reviewed POLST. Elpidio states that the patient is supposed to be a DNR. Elpidio is happy to fill out a POLST and he has filled one out before. POLST is signed by Elpidio, with the pt happily drinking cranberry juice and telling Elpidio, "just throw me in the river, I can swim!" POLST filled out and on chart for doctor review and signature. Spoke with nurse, Miko. He will call Dr. Javier for the order and let her know about the POLST.
--- NOTE | 2018-10-28 19:02 | NUR ---
SHIFT SUMMARY: CODE STATUS CHANGED TO DNR THIS SHIFT; PURPLE BAND ON R WRIST; DR NOTIFIED. PT CONFUSED; CALLS OUT; NO USE OF CALL LIGHT. HX CVA c R SIDE WEAKNESS. L ARM DVT REVASCULARIZED; DRESSING IN PLACE. ASPIRATION PRECAUTIONS; PO MEDS CRUSHED IN APPLE SAUCE; PT UPRIGHT; THICKENED LIQUIDS. AWAITING PLACEMENT. REPORT GIVEN TO ONCOMING RN.
--- NOTE | 2018-10-29 03:50 | NUR ---
SHIFT SUMMARY. HAS SLEPT ON AND OFF THROUGHOUT THE SHIFT. PT REQUESTED FLUIDS AND CRACKERS FREQUENTLY. PT YELLS OUT HIS NEEDS. PT IS ABLE TO NOTIFY WHEN HE NEEDS THE URINAL. PT IS CURRENTLY SLEEPING. CALL LIGHT IS IN REACH. BED ALARM IS ARMED.
[2018-10-29 06:03] LABS: Albumin, Blood 2.4 g/dL (3.4-5.0); Anion Gap 8 mmol/L (6-16); Blood Urea Nitrogen 30 mg/dL (8-24); Bun/Creatinine Ratio 23.6 (12.0-20.0); CO2, Blood 31 mmol/L (21-32); Calcium, Blood 7.7 mg/dL (8.5-10.1); Chloride, Blood 101 mmol/L (98-108); Creatinine, Blood 1.27 mg/dL (0.60-1.20); Glomerular Filtration Rate 59 (60-); Glucose, Blood 131 mg/dL (70-99); Phosphorus, Blood 3.1 mg/dL (2.5-4.9); Potassium, Blood 3.8 mmol/L (3.5-5.5); Sodium, Blood 140 mmol/L (136-145)
--- NOTE | 2018-10-29 18:05 | NUR ---
SHIFT SUMMARY: NO ACUTE CHANGES TO REPORT THIS SHIFT. PT ALERT; CONFUSED; IRRITABLE; HX CVA c R SIDE DEFICITS. HX L ARM DVT c REVASCULARIZATION; DRESSING IN PLACE. ASPIRATION PRECAUTIONS; PO MEDS CRUSHED IN APPLE SAUCE; PT UPRIGHT FOR PO INTAKE. PT FORGETFUL; OCCASIONAL ATTEMPTS TO GET OOB/ OO CHAIR; ALARMS ON FOR SAFETY. AWAITING PLACEMENT. WCTM.
--- NOTE | 2018-10-29 22:40 | NUR ---
PT BECAME AGITATED WHEN HE WAS OFFERED THICKENED WATER. PT THREW WATER ACROSS THE ROOM. HE STATED HE WANTED SOMETHING TO DRINK AND HE WAS INFORMED THAT HE CAN ONLY HAVE THICKENED FLUIDS.
--- NOTE | 2018-10-30 04:14 | NUR ---
SHIFT SUMMARY PT SLEPT OFF AND ON THROUGHOUT SHIFT. PT CONTINUES TO YELL OUT FOR FOOD AND DRINK. PT YELLS WHEN HE NEEDS TO USE THE URINAL. PT DID BECOME AGITATED AND THROW HIS DRINK ACROSS THE ROOM. PT WAS REDIRECTED AND HE APOLOGIZED FOR HIS ACTIONS. PT HAD NO ACUTE ISSUES NOTED. PT IS WATCHING TV AND IS IN NO DISTRESS. BED ALARM ON AND CALL LIGHT IN REACH.
--- NOTE | 2018-10-30 18:37 | NUR ---
SHIFT SUMMARY: NO ACUTE CHANGES TO REPORT THIS SHIFT. PT ALERT; CONFUSED; ORIENTED TO SELF AND FAMILY; HX CVA c R SIDE WEAKNESS. HX L ARM DVT c REVASCULARIZATION; DRESSING C/D/I. NO C/O PAIN THIS SHIFT. ASPIRATION PRECAUTIONS; FEEDER; MEDS CRUSHED IN APPLE SAUCE. AWAITING PLACEMENT.
--- NOTE | 2018-10-31 00:02 | NUR ---
PT APPEARED LETHARGIC. TONIGHT WAS NEW DOSE OF LANTUS SO I CHECKED HIS CBG. CBG WAS 168 MG/DL.
--- NOTE | 2018-10-31 03:21 | NUR ---
SHIFT SUMMARY PT CONTINUES TO REQUEST FOOD AND DRINK THROUGHOUT THE SHIFT. PT IS AT TIMES IMPULSIVE AND UNCOOPERATIVE. PT YELLS WHAT HE WANTS OR NEEDS. PT HAS BEEN TAUGHT USE OF CALL LIGHT, CONTINUES TO YELL OUT NEEDS. NO ACUTE ISSUES NOTED. PT IS CURRENTLY EATING CRACKERS AND BREATHING EASY. BED ALARM ON.
--- NOTE | 2018-10-31 18:11 | NUR ---
SHIFT SUMMARY PT AXO, THOUGH HAS BEEN YELLING OUT THROUGHOUT THE DAY AND CURSING AT STAFF. PT TRIED TO HIS NURSE UPON SHIFT ASSESSMENT. PT DENIED PAIN, SOB AND NV. PT UP TO CHAIR FOR MEALS. VSS. NO ACUTE CHANGES THIS SHIFT. BED ALARM ON, BED IN LOW POSITION, CALL LIGHT WITHIN REACH.
--- NOTE | 2018-11-01 06:23 | NUR ---
called out when wanted someting, becomes agitated if response not what he desires, easily redirectable, alert orintate to place and self frusterated that he is unable to go home, will not feed self, call light in reach, saline locked, room air,
--- NOTE | 2018-11-01 17:13 | NUR ---
SHIFT SUMMARY NO CHANGES IN ASSESSMENT AT THIS TIME. PT CONTIUES TO CALL OUT FOR TOILETING & FOOD. PT HAS NEEDED FEEDING ASSISTANCE THROUGHOUT THE DAY. VSS. PT REORIENTED & TOLD YELLING AT STAFF IS UNACCEPTABLE WHEN NEEDED. WILL CONTINUE TO MONITOR UNTIL TURNOVER IS COMPLETE.
--- NOTE | 2018-11-02 06:41 | NUR ---
calling out for needs, gave single gramcrackers when requested, observed for s/sx of choaking none noted, wants everything done for him so had to work to convince him to reach to table over reclining hips to case picker cracker, also thickened water in a sippy cup, easily redirected, will continue to monitoro and treat until hand off completed with day staff
--- NOTE | 2018-11-02 16:45 | NUR ---
SHIFT SUMMARY PT UPGRADED TO THIN LIQIUDS WITH NO STRAWS. PT TOLERATING WELL. NO OTHER CHANGES IN ASSESSMENT. VSS. PT REORIENTED THROUGHOUT SHIFT NEEDED. PT INSTRUCTED THAT HE MUST TREAT STAFF WITH RESPECT 3 TIMES THIS SHIFT AFTER BECOMING FRUSTRATED & YELLING/CUSSING. PT CURRENTLY RESTING IN BED. UP IN CHAIR FOR MEALS. PT TRANSFERING WELL WITH 1P ASSIST. WILL CONTINUE TO MONITOR UNTIL TURNOVER IS COMPLETE.
--- NOTE | 2018-11-03 07:17 | NUR ---
still calling out for urin and food, can be grumpy but easily refocused, call light in reach, saline locked room air, walking rounds completed with day staff
--- NOTE | 2018-11-03 18:29 | NUR ---
SHIFT SUMMARY. PT WITHOUT C/O PAIN, N/V, PAIN. GOOD PO INTAKE THROUGHOUT SHIFT WITH ASSISTANCE FEEDING. AWAITING PLACEMENT, SS IS HOPING BY WEDNESDAY.
--- NOTE | 2018-11-04 05:21 | NUR ---
NOC SHIFT SUMMARY THIS PT STARTED THE NIGHT UP IN HIS CHAIR. LATER TRANSFERED TO BED WHERE HE HAS SPENT THE REMAINDER OF THE NIGHT. FREQUENTLY CALLS OUT WHEN HE NEEDS TO URINATE. SPENT THE NIGHT ALTERNATING BETWEEN WAKEFULLNESS AND SLEEP. HE IS OFTEN DEMANDING AND RUDE, BUT LARGELY COMPLIANT WITH CARE. WILL CONTINUE TO MONITOR.
--- NOTE | 2018-11-04 17:55 | NUR ---
SHIFT SUMMARY. ALERT, ORIENTATED TO SELF AND FAMILY, FOLLOWS DIRECTIONS, YELLS OUT FOR ASSISTANCE. AWAITING PLACEMENT, SS INVOLVED. NO NEW CHANGES.
--- NOTE | 2018-11-05 06:10 | NUR ---
NOC SHIFT SUMMARY THIS PT BEGAN THE NIGHT IN HIS CHAIR AND LATER WAS ASSISTED TO THE BED. HIS DID CALL AND SPOKE WITH HIM FOR SEVERAL MINUTES. HE REMAINED IN BED THROUGHOUT THE NIGHT WITH THE EXCEPTION OF ONCE BEING ASSISTED TO THE BATHROO. HE DOES CALL OUT FREQUENTLY FOR FOOD, COFFEE, REPOSITIONING, NEEDING TO URINATE, AND CHANNEL CHANGES ON THE TV. DID ATTEMPT TO GET OUT OF BED WITHOUT ASSISTANCE. CURRENTLY UP IN HIS CHAIR WATCHING TV. IN NO ACUTE DISTRESS. WILL CONTINUE TO MONITOR.
--- NOTE | 2018-11-05 12:44 | NUR ---
PT IRRITABLE, YELLING, DEMANDING, SWEARING. DENIES PAIN. ALERT TO SELF, FAMILY, FOLLOWS SOME DIRECTION. COUSIN IN ROOM. STATES HE HOMELESS, . LIVE ON STREET. H/R REG, NO MURMER NOTED. NO TELE. LUNGS CLEAR, RESP EASY, UNLABORED. ON R/A. BT X4 LAST BM LAST NITE. INCONT URINE. IN ATTENDS. 2 ASST TO BSC. 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 BED IN LOW POSITIION, CALL LITE IN REACH, BED ALARM ON FOR SAFETY
--- NOTE | 2018-11-05 18:06 | NUR ---
PT DEMANDING TODAY. YELLS OUT FOR DESIRES. DOES NOT USE CALL LITE. IS CHILD LIKE DEV DELAY. NO OTHER CONCERNS AT THIS TIME. BED IN LOW POSITION, CALL LITE IN REACH, BED ALARM ON FOR SAFETY
--- NOTE | 2018-11-06 06:09 | NUR ---
Rn summary: Patient was found eating cheetos at bedside. He has had no difficulty swallowing. Pt did take meds whole in applesauce. Pt is on RA and lungs were clear. Pt continued to have rt sided weakness. Pt moves minimally by himself in bed. Pt is often uncooperative with care. Did try ad hit this process description writer when assessment of heart and lungs attempted. Pt often yells and says profanity. Did sleep on and off throughout the shift. Uses the urinal with assist. Call light is near but pt does not use, just yells for assist. No changes this shift.
--- NOTE | 2018-11-06 08:00 | NUR ---
PT IRRITABLE SOMETIMES REASONABLE. SWITCHES REGULARLY. YELLS AND CURSES AT STAFF FOR DESIRES A CHILD MIGHT THAT WANTS HIS WAY. PT IS DEV DELAY. DENIES PAIN, ALERT TO SELF AND FAM. BECOMES ANGRY AND YELLS I ASKED FURTHER QUESTIONS. H/R REG, NO MURMER NOTED. NO TELE. LUNGS CLEAR, RESP EASY, UNLABORED. ON R.A. BT X4 LAST BM 1-2 DAYS PER PT. VOIDS INCONT. BRUISING LEFT SHOULDER, LEFT ABD. RED COCCYX, MEPILEX IN PLACE. LARM SWOLLEN. NONPITTING. SCAB RT KNEE AND PEÑA. BED IN LOW POSITION, CALL LITE IN REACH, BED ALARM ON FOR SAFETY. DOES NOT USE LITE, YELLS OUT DEMANDS. REFUSED TURNING.
--- NOTE | 2018-11-06 18:03 | NUR ---
PT CONTINUES TO YELL OUT FOR REQUESTS. REORIENTED TO CALL LITE, DOES NOT APPEAR TO UNDERSTAND. HAS BEEN SNACKING SOME. LEFT ARM REMAINS SWOLLEN. NO OTHER CHANGES NOTED. BED IN LOW POSITION, CALL LITE IN REACH, DOES NOT USE. BED ALARM ON FOR SAFETY.
--- NOTE | 2018-11-07 05:03 | NUR ---
Rn summary: Pt has history of being developementaly delayed. He calls out frequently that he needs to "pee" and that he is "hungry". Patient can be irritable when vital signs are taken. Pt has slept very little tonight. He has voided frequently, denies burning or discomfort with urination. Bladder scan done pre void for 110cc and pt voided 75cc. Left arm remains swollen. Elevated on pillow. Pt has had pudding and broth during the night. Pt condition is stable with no changes during the night. Pt does not try and get out of bed, needs assist with repositioning.
--- NOTE | 2018-11-07 16:56 | NUR ---
SHIFT SUMMARY PATIENT CONTINUES TO YELL OUT FOR VARIOUS NEEDS. INCONTINENT/CONTINENT. MAX 2 PERSON ASSIST FROM BED TO CHAIR. NO ACUTE CHANGES NOTED.
--- NOTE | 2018-11-08 05:37 | NUR ---
VSS, AFEBILE, A/O X 2, DEVELPMENTALLY DELAYED, CALLS OUT INSTEAD OF USING THE CALL LIGHT, MAKES LOUD RANDOM PETULANT DEMANDS, POOR CARDIO OUTPUT LEADS TO CHRONIC FATIGUE AND UNSTEADY ON HIS FEET, INCONT B/B, CBG ACHS. PMHX: CHF, HYPOXIA, NEFTALI, CARDIOMYOPATHY, HTN, DM II, CVA, WEAKEST ON THE R SIDE, CAD OF WILTON ARTERY. PLACEMENT ISSUES.
[2018-11-08 06:15] LABS: Anion Gap 8 mmol/L (6-16); Blood Urea Nitrogen 33 mg/dL (8-24); Bun/Creatinine Ratio 30.3 (12.0-20.0); CO2, Blood 27 mmol/L (21-32); Chloride, Blood 102 mmol/L (98-108); Creatinine, Blood 1.09 mg/dL (0.60-1.20); Glomerular Filtration Rate >60 (60-); Glucose, Blood 136 mg/dL (70-99); Sodium, Blood 137 mmol/L (136-145)
--- NOTE | 2018-11-08 16:31 | NUR ---
SHIFT SUMMARY PATIENT SAT UP IN BED AND STARTED YELLING AT THIS RN AND RAJAN MULLINS STATING HE WANTED TO GO OUT AND SMOKE. ATTEMPTED TO GET SELF OUT OF BED. YELLING AND CURSING AT STAFF. SECURITY NOTIFIED. DEJUAN GUEVARA ABLE TO DEESCALATE THE SITUATION, PATIENT AGREED TO GO TO THE CHAIR TO SIT. HAS NOT HAD ANY OTHER ISSUES SINCE. NOTED THAT FAMILY WAS AT BEDSIDE DURING PATIENT ESCALATION OF BEHAVIORS, ASKED PATIENT FAMILY TO LEAVE. THEY AGREED. THIS SEEMED TO HELP PATIENTS AGGITATION.
--- NOTE | 2018-11-09 04:48 | NUR ---
VSS, AFEBRILE, ALERT/CONFUSED/FORGETFUL, DEVELOPMENTALLY DELAYED, CALLS OUT LOUD CURSES AND DEMANDS FOR IMMEDIATE ATTENTION, CURSES AND THREATENS STAFF DURING CARE/VS/BLOOD DRAWS OR IF HE WANTS FOOD/ATTENTION. SIGNIFICANT BRUISING ON R UPPER ARM IS FADING NOW. VERBAL OUTBURSTS ARE NOT EASILY PREDICTED OR REDIRECTED. PMHX: CHF, HYPOXIA, DEVELOPMENTAL DELAYS, CARDIOMYOPATHY, HTN, DM II, CVA, CAD OF RINCON ARTERY.
--- NOTE | 2018-11-09 17:53 | NUR ---
SUMMARY PT SITTING UP IN THE CHAIR EATING HIS DINNER WITH SOME ASSISTANCE, PT IS DEVELOPMENTALLY DELAYED, OFTEN YELLS OUT AND DOES NOT USE THE CALL LIGHT, PT IS A 1-2 PERSON ASSIST TO THE COMMODE AND UP TO THE CHAIR, PT DID WORK WITH THERAPY TODAY, PT ABLE TO TAKE HIS PILLS WHOLE WITH WATER, STAFF FROM ASSISTED LIVING OR [facility] CAME IN TO SEE THE PT ALONG WITH DISCHARGE PLANNING, PT'S COUSIN HAS BEEN IN TO SEE THE PT SEVERAL TIMES TODAY, VSS, NO ACUTE CHANGES, WILL CONT TO MONITOR
--- NOTE | 2018-11-10 06:23 | NUR ---
SHIFT SUMMARY PT IS A 78 Y/O MALE, ADMITTED FOR CHF EXACERBATION. HE HAS A HISTORY OF DEVELOPMENTAL DELAY, AND YELLED OUT FREQUENTLY DURING THE NIGHT INSTEAD OF USING A CALL LIGHT. PT IS COOPERATIVE WITH CARE. HE URINATED SMALL AMOUNTS FREQUENTLY DURING THE NIGHT. PT ALSO TENDED TO ASK FOR FOOD AND DRINKS FREQUENTLY DURING THE NIGHT. PT'S VITALS REMAINED STABLE. NO OTHER ACUTE CHANGES IN PT CONDITION NOTED. WILL CONTINUE TO MONITOR AND TREAT PER EMAR.
--- NOTE | 2018-11-10 06:36 | NUR ---
SHIFT SUMMARY PT IS A 59 Y/O MALE, ADMITTED FOR PSYCHOSIS. THE PT HAS BEEN A&O X 2-3, WITH RAMBLING SPEECH AND FORGETFULNESS. 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 HE WAS ALSO MORE UNSTEADY ON HIS FEET, AND SO WAS WALKING TO THE BATHROOM WITH A 1 PERSON ASSIST. HE REPORTED BACK PAIN, WHICH WAS RELIEVED WITH PRN TYLENOL. HE DENIED ANY NAUSEA OR SOB. NO OTHER ACUTE CHANGES IN PT CONDITION NOTED. WILL CONTINUE TO MONITOR AND TREAT PER EMAR.
--- NOTE | 2018-11-10 18:19 | NUR ---
SUMMARY PT RESTING QUIETLY IN BED, FINISHED DINNER, IS A FEEDER, PT ABLE TO CALL OUT TO MAKE HIS NEEDS KNOWN, PT DOES NOT USE THE CALL LIGHT, PT HAS BEEN UP TO THE CHAIR TODAY, FAMILY HAS BEEN IN TO VISIT, VSS, NO ACUTE CHANGES, WILL CONT TO MONITOR
--- NOTE | 2018-11-11 06:43 | NUR ---
SHIFT SUMMARY PT AWAKE ON/OFF T/O NIGHT. NO ACUTE CHANGES THIS SHIFT. CALLS OUT WHEN HE NEEDS SOMETHING & DOES NOT USE CALL LIGHT. VSS. PT UP TO CHAIR W/2 ASSIST, GAIT BELT & FWW. COCCYX IS REDDENED & BARRIER CREAM HAS BEEN APPLIED. LEFT ARM HAS 2+ PITTING EDEMA & R. SIDE IS VERY WEAK. CALL LIGHT IN REACH & I WILL CONT. TO MONITOR PT UNTIL DAY SHIFT RN ASSUMES CARE.
--- NOTE | 2018-11-11 18:30 | NUR ---
SUMMARY PT RESTING QUIETLY IN BED, WAKES EASILY, CALLS OUT FREQUENTLY, DOES NOT USE THE CALL LIGHT, IS RESISTANT TO SOME CARES, PT'S SPOUSE IN TO VISIT, ASSISTED HIM WITH HIS LUNCH, THEN LEFT, PT'S COUSIN CAME IN TO VISIT WELL, VSS, NO ACUTE CHANGES, WILL CONT TO MONITOR
--- NOTE | 2018-11-12 06:30 | NUR ---
SHIFT SUMMARY PT YELLS OUT WHEN HE NEEDS SOMETHING BUT IS COOPERATIVE WITH CARE. HE WAS ABLE TO SLEEP THROUGH NIGHT. DIDN'T WANT LIGHT TURNED OFF ALL NIGHT. USES URINAL WITH ASSISTANCE. NO USE IN R ARM. BED ALARM IN USE
--- NOTE | 2018-11-13 07:18 | NUR ---
SHIFT SUMMARY PT CONTINUES TO CALL OUT WHEN HE WANTS SOMETHING. HAS BEEN INCONT AND MORE SLEEPY THIS NIGHT COMPARED TO PREVIOUS NIGHT. HE WAS ABLE TO SLEEP THROUGH NIGHT. CREAM APPLIED TO BUTTOCKS AND GROIN AREA. BED ALARM IN USE
--- NOTE | 2018-11-13 18:27 | NUR ---
METFORMIN CHANGED FROM DAILY TO BID, NO ACUTE CHANGES NOTED THIS SHIFT, WILL CONTINUE TO MONITOR AND REPORT TO ONCOMING RN.
[2018-11-14 05:23] LABS: Hematocrit 35.3 % (37.0-53.0); Mean Corpuscular HGB 27.8 pg (26.0-34.0); Mean Corpuscular HGB Conc 31.2 g/dL (31.5-36.5); Mean Corpuscular Volume 89 fL (80-100); Mean Platelet Volume 9.9 fL (9.1-12.4); Platelet Count 340 K/mm3 (150-400); RDW Coefficient Variation 16.9 % (11.7-14.2); RDW Standard Deviation 55.5 fL (35.1-46.3); Red Blood Cell Count 3.96 M/mm3 (4.30-5.90); White Blood Cell Count 7.26 K/mm3 (4.00-11.30)
[2018-11-14 05:45] LABS: Anion Gap 8 mmol/L (6-16); Blood Urea Nitrogen 36 mg/dL (8-24); CO2, Blood 28 mmol/L (21-32); Calcium, Blood 8.2 mg/dL (8.5-10.1); Chloride, Blood 103 mmol/L (98-108); Creatinine, Blood 1.06 mg/dL (0.60-1.20); Glomerular Filtration Rate >60 (60-); Glucose, Blood 162 mg/dL (70-99); Potassium, Blood 3.6 mmol/L (3.5-5.5); Sodium, Blood 139 mmol/L (136-145)
--- NOTE | 2018-11-14 06:39 | NUR ---
SHIFT SUMMARY YELLS OUT WHEN HE WANTS ANYTHING. DEVELOPMENTALLY DELAYED. INCONT OF URINE. HAD LARGE FORMED BM IN BSC 2 PERSON ASSIST C GAIT BELT. HE WAS ABLE TO SLEEP THROUGH NIGHT
--- NOTE | 2018-11-14 17:03 | NUR ---
PT APPEARED TO SLEEP FOR MOST OF THE DAY, OFFERED TO ASSIST THE PT UP FOR MEALS HE DECLINED EACH TIME, HOWEVER HE GOT UP THIS AFTERNOON AND WENT OUTSIDE WITH HIS TO SMOKE 1 PERSON ASSIST STAND PIVOT TO THE CHAIR AND TO THE BED, PT ATE BREAKFAST LATE AND REFUSED TO EAT LUNCH, THE PT APPEARS TO BE BREATHING EASILY ON RA AT REST, BED ALARM WIRELESS CELLULAR TECHNICIAN LIGHT IN REACH
--- NOTE | 2018-11-15 03:09 | NUR ---
SHIFT SUMMARY PT SLEEPING HF, WITH BLANKETS PULLED OVER HIS FACE AND HEAD AT START OF SHIFT. WAKES EASILY FOR CARE, BUT PULLS THE BLANKETS OVER HIS FACE WHEN HE WANTS TO SLEEP. REFUSES TO HAVE LIGHT TURNED OFF. PT CALLS OUT FOR NEEDS WHEN AWAKE. WILL YELL OUT WHEN NEEDING TO "PEE", BUT IS ALSO ALREADY INCONTINENT BEFORE HE CALLS. NO C/O PAIN. OFFERED FOOD AND DRINKS WITH ASSIST. PT ABLE TO HELP WITH TURNING AND CHANGING, USING L HAND/ARM. PER REPORT, PT WAITING FOR PLACEMENT TO [facility] [employer] [facility]. CALL LT IN REACH. BED ALARM ON.
--- NOTE | 2018-11-15 16:05 | NUR ---
PT IS ALERT ORIENTED TO SELF, FAMILY AND PLACE, THE PT IS A 1 PERSON ASSIST UP TO THE CHAIR, THE PT WAS INTO THE CHAIR X1 TODAY,THE PT CONTINUES TO YELL OUT FOR HIS NEEDS AT THE STAFF, THE PT USE FOAL LANGUAGE AT THE STAFF, PT APPEARS TO BE BREATHING EASILY ON RA, WHILE IN BED THE PT PULLS THE COVERS OVER HIS HEAD, CALL LIGHT IN REACH, WILL CONTINUE TO MONITOR AND ASSESS FOR CHANGES
--- NOTE | 2018-11-16 04:26 | NUR ---
SUMMARY: PT CONT'S TO BE CONFUSED AND HAS DEVELOPMENTAL DELAY AT BASELINE. HE RECOGNIZES FACES AND SPECIFIES NEEDS BUT DOESN'T USE CALL LIGHT AND INSTEAD YELLS INTO HALLS. HE CAN BE DEMANDING AT TIMES BUT CALMS W/EXPLANATIONS AND NEEDS MET. ATTENDS CHANGED PRN FOR INCONTINENCE AND ASSISTANCE PROVIDED W/ URINAL. MANY SNACKS WERE PROVIDED PER PT REQUEST, FEEDER ASSIST REQUIRED. HIS R.SIDE CONT'S WEAKER FROM PREVIOUS CVA AND STRENGTH SEEMS TO HAVE IMPROVED FROM WHEN THIS RN CARED FOR HIM BEFORE. MEDS WERE TOLERATED CRUSHED IN APPLESAUCE AND ASP.PREC'S MAINTAINED. PT OCCASIONALLY ATTEMPTS TO REFUSE CARE BUT IS COOPERATIVE W/ENCOURAGEMENT. NO ACUTE CHANGES, VSS/AFEBRILE. PT AWAITING PLACEMENT. BOWEL CARE MEDS NEEDED, WILL ENSURE DAY STAFF ARE AWARE.
--- NOTE | 2018-11-16 18:39 | NUR ---
SHIFT SUMMARY PT UP TO W/C THIS AFTERNOON WHEN HERE TO VISIT. SHE TOOK HIM OUT TO SMOKE. PATCH REMOVED. SHOWER GIVEN AFTER HE CAME BACK. REPORTS SHE HAS FOUND A PLACE FOR THEM TO LIVE AND SHE IS COMING TO GET HIM TOMORROW AND TAKING HIM HOME. SPOKE WITH CHILDREN'S ENTERTAINER AND LEAD HOUSEKEEPER ABOUT WIFES STATEMENT. PT OCC YELLING OUT BUT OTHERWISE CALM AND COOPERATIVE WITH CARE.
--- NOTE | 2018-11-17 03:59 | NUR ---
SHIFT SUMMARY PATIENT HAD NO ACUTE CHANGES OBSERVED THIS SHIFT. AXOX 1-2 AND TWO PERSON ASSIST TO BSC W/FWW. TAKES MEDICATION WHOLE WITH APPLE SAUCE. NO IV ACCESS. CBG 133. PT OCC YELLS OUT. VSS/AFEBRILE. DENIES PAIN, SOB, AND N/V. CALL LIGHT IN REACH. BED IN LOWEST POSITION. WILL CONTINUE TO MONITOR UNTIL DAY SHIFT NURSE ASSUMES CARE.
--- NOTE | 2018-11-17 17:29 | NUR ---
PT AOX3 WITH CONFUSION. PT STAYS IN BED. PT REQUESTING URINAL TODAY. PT WAS COOPERATIVE MOST OF THE DAY. PT HAD HIS SIGNIFICANT OTHER COME IN TO SEE HIM TODAY AND SHE WANTED TO TAKE HIM OUT TO SMOKE. THIS CLASS A [employer]ERS WAS ADVISED TO HAVE PT STAY IN ROOM PER REPORT. CONFIRMED THIS WITH CHARGE. SHE AND THE PT BECAME VERY UPSET AND VOCAL. PT CONTINUED TO DO A LOT OF YELLING, BUT THEN CALMED DOWN AND THIS CLASS A [employer] WAS ABLE TO GET HIM SOME COFFEE WITHOUT THE YELLIING. WILL CONTINUE TO MONITOR.
--- NOTE | 2018-11-18 05:00 | NUR ---
SHIFT SUMMARY PT DID NOT SLEEP MUCH THIS SHIFT. PT CONTINUES TO YELL OUT. PT HAD NO ACUTE ISSUES NOTED. CALL LIGHT IN REACH.
[2018-11-18 11:04] LABS: Albumin, Blood 2.8 g/dL (3.4-5.0); Anion Gap 9 mmol/L (6-16); Blood Urea Nitrogen 33 mg/dL (8-24); Bun/Creatinine Ratio 35.6 (12.0-20.0); CO2, Blood 28 mmol/L (21-32); Calcium, Blood 8.4 mg/dL (8.5-10.1); Chloride, Blood 101 mmol/L (98-108); Creatinine, Blood 0.93 mg/dL (0.60-1.20); Glomerular Filtration Rate >60 (60-); Glucose, Blood 158 mg/dL (70-99); Phosphorus, Blood 3.5 mg/dL (2.5-4.9); Potassium, Blood 3.9 mmol/L (3.5-5.5); Sodium, Blood 138 mmol/L (136-145)
--- NOTE | 2018-11-18 17:18 | NUR ---
PT AOX3 WITH CONFUSION. PT HAS BEEN EASIER TO WORK WITH TODAY AND MORE COOPERATIVE. PT STILL YELLS OUT WHEN HE NEEDS ASSISTANCE. PT IN BED ALL DAY. NO DISTRESS NOTED AT THIS TIME WILL CONTINUE TO MONITOR.
--- NOTE | 2018-11-19 04:34 | NUR ---
SHIFT SUMMARY: PT IS ALERT TO SELF, STAFF, AND FAMILY. PT DOES NOT USE HIS CALL LIGHT, YELLS OUT FOR NEEDS. PT SHOWS INTERMITTENT AGITATION. PT IS A 2 PERSON ASSIST FOR TRANSFERS, USING THE URINAL IN BED OVERNIGHT. PT DENIES PAIN, NAUSEA, VOMITING, AND SOB. PT SLEPT VERY LITTLE. AWAITING PLACEMENT. NO ACUTE CHANGES OR COMPLICATIONS. BED IN LOW POSITION, CALL LIGHT WITHIN REACH, BED ALARM SET.
--- NOTE | 2018-11-19 18:48 | NUR ---
PATIENT A&O X3. YELLS OUT THROUGHOUT THE SHIFT. DENIES ANY PAIN, SOB, NAUSEA. BED ALARM IN PLACE. RESTED THROUGHOUT THE SHIFT. ACHS. NO ACUTE CHANGES.
--- NOTE | 2018-11-20 04:52 | NUR ---
SHIFT SUMMARY: PT IS ALERT AND ORIENTED TO SELF, DEVELOPMENTALY DELAYED AT BASELINE. PT IS A 1-2 PERSON ASSIST TO THE BSC. PT DOESN'T USE HIS CALL LIGHT, YELLS OUT FOR NEEDS. PT USES THE URINAL IN BED WITH A ONE ASSIST. PT DENIES PAIN, NAUSEA, VOMITING, AND SOB. PT DID NOT SLEEP AGAIN THIS SHIFT. NO ACUTE CHANGES OR COMPLICATIONS. WILL REPORT TO DAY NURSE.
--- NOTE | 2018-11-20 16:47 | NUR ---
SUMMARY PT IS A/O TO SELF, SURROUNDINGS, HX DEVELOPMENTALLY DELAYED. HE STATE NO PAIN/DISCOMFORT T/O DAY. HE YELLS OUT WHEN HE NEEDS SOMETHING SUCH SNACKS/FOOD OR URINAL. VISUAL MERCHANDISE MANAGER PROVIDE SHAVE TODAY/REQUEST, PT SATISFIED AFTER. HE HAS SAT UP IN BED, WATCHED TV @ X'S @ OTHER X'S HE WILL COVER HIS HEAD WITH BLANKETS NOT WANTING TO BE DISTURBED. OVERALL PLEASANT AFFECT, COOOPERATIVE. DR MCCARTHY STATE ORIGINAL DX OF CHF EXAC & LUE RESOLVED, AWAITING PLACEMENT, SOCSERV ASSISTING. VSS.
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
--- NOTE | 2018-11-22 04:01 | NUR ---
SHIFT SUMMARY THE PATIENT'S VITALS AT THE START OF THE SHIFT WERE WNL, HIS LUNGS WERE CLEAR, BUT DIM AT THE BASES, AND HE WAS A&O THE SELF AND SURROUNDINGS. THE PATIENT HAS BEEN COOPERATIVE MOST OF THE SHIFT AND CALLING WHEN NEEDING SOMETHING. THE PATIENT WAS REMINDED NOT TO YELL OUT, BUT TO PUSH HIS CALL LIGHT. THE PATIENT IS ASLEEP AT THIS TIME, WILL CONTINUE TO MONITOR.
[2018-11-22 05:24] LABS: Hemoglobin 11.7 g/dL (13.5-17.5); Mean Corpuscular HGB 27.5 pg (26.0-34.0); Mean Corpuscular HGB Conc 30.8 g/dL (31.5-36.5); Mean Corpuscular Volume 89 fL (80-100); Mean Platelet Volume 10.5 fL (9.1-12.4); Platelet Count 283 K/mm3 (150-400); RDW Coefficient Variation 16.9 % (11.7-14.2); RDW Standard Deviation 55.5 fL (35.1-46.3); Red Blood Cell Count 4.25 M/mm3 (4.30-5.90); White Blood Cell Count 8.32 K/mm3 (4.00-11.30)
[2018-11-22 06:05] LABS: Albumin, Blood 2.8 g/dL (3.4-5.0); Anion Gap 9 mmol/L (6-16); Blood Urea Nitrogen 38 mg/dL (8-24); Bun/Creatinine Ratio 31.9 (12.0-20.0); CO2, Blood 29 mmol/L (21-32); Calcium, Blood 8.7 mg/dL (8.5-10.1); Chloride, Blood 101 mmol/L (98-108); Creatinine, Blood 1.19 mg/dL (0.60-1.20); Glomerular Filtration Rate >60 (60-); Glucose, Blood 95 mg/dL (70-99); Phosphorus, Blood 3.3 mg/dL (2.5-4.9); Potassium, Blood 3.9 mmol/L (3.5-5.5); Sodium, Blood 139 mmol/L (136-145)
--- NOTE | 2018-11-22 18:16 | NUR ---
SHIFT SUMMARY. A&OX2-3, PLEASANT. PT DENIES PAIN, SOB, N/V. 1500 PT'S OBSERVED ENTERING ROOM AND OVERHEARD HER ASKING PT FOR MONEY. PT' ASKED IF SHE COULD TAKE PT OUTSIDE TO SMOKE. EDUCATED THAT PT HAS NOT SMOKED IT QUITE A LONG TIME AND IT SHE WAS DISCROURAGED TO MENTION IT TO PT THE PT HAD NOT MENTIONED THE ENTIRE SHIFT. GAS BURNER OPERATOR ALERTED TO 'S PRESENCE AND THAT SHE WAS REQUESTING MONEY FROM PT. GAS BURNER OPERATOR SPOKE WITH , SEE GAS BURNER OPERATOR REASSMENT. PLAN IS FOR PT TO D[facility] AT 1000.
--- NOTE | 2018-11-23 04:41 | NUR ---
SHIFT SUMMARY THE PATIENT PRESENTED AT THE START OF THIS SHIFT WITH VITALS WNL, A&O TO SELF AND SOME SURROUNDINGS, WITH LUNG SOUNDS THE WERE CLEAR, BUT DIM AT THE BASES. THE PATIENT HAS SLEPT A LITTLE DURNING THE SHIFT. THE PATIENT STARTED CALLING WHEN HE NEEDED HELP. THE PATIENT IS SCHEDULED TO BE TRANSFERRED TO A SNF ON DAYSHIFT TODAY. THE PATIENT IS RESTING AT THIS TIME WILL CONTINUE TO MONITOR.
[2018-11-23 06:10] LABS: Anion Gap 9 mmol/L (6-16); Blood Urea Nitrogen 36 mg/dL (8-24); Bun/Creatinine Ratio 32.7 (12.0-20.0); CO2, Blood 27 mmol/L (21-32); Calcium, Blood 8.7 mg/dL (8.5-10.1); Chloride, Blood 102 mmol/L (98-108); Glomerular Filtration Rate >60 (60-); Glucose, Blood 110 mg/dL (70-99); Potassium, Blood 3.9 mmol/L (3.5-5.5); Sodium, Blood 138 mmol/L (136-145)
[2018-11-23] MEDS ORDERED: FURO40 PO (10:05)
[2018-11-23] MEDS ORDERED: LISI5 PO (10:06)
[2018-11-23] MEDS ORDERED: QUET25 PO (10:08)
[2018-11-23] MEDS ORDERED: METF500C PO (10:09)
[2018-11-23] MEDS ORDERED: XARELTO20 MG PO (10:10)
--- NOTE | 2018-11-23 10:53 | NUR ---
DISCHARGE [facility] IN EARLY THIS AM, STATE PT POA/CAREGIVER WILL BE IN TODAY 2 1000 FOR TRANSPORTATION TO [facility], D/C ARRANGED FOR TODAY. DR WALTERS NOTIFIED, PLACE ORDERS. BAG SEALER NOTIFY [facility] & FAX ORDERS. D/C INSTRUCT PROVIDED TO POA-LINDY, WITH EMPHASIS ON F/U W PCP. PT IS PLEASANT, ANXIOUS TO LEAVE HOSPITAL, DEVELOPMENTALLY DELAYED. MARKETING OPERATIONS ASSOCIATE PROVIDE W/C ESCORT FROM HOSP.
== END 2018-11-23 10:48 | disposition home or self-care (01) | DRG 270 ==
LOC: ER 07:12 → MEDS 10:07 → ICUW 15:00 → MEDS 15:00 → ICUW 16:54 → ICUE 10-21 13:30 → MEDS 10-21 18:34
PROVIDERS: Family Medicine; Internal Medicine; Physician Assistant; ADMIT Internal Medicine
PROC: 05C63ZZ Extirpation of Matter from Left Subclavian Vein, Percutaneous Approach (ICD-10-PCS; principal; 2018-10-20)
PROC: 05CN3ZZ Extirpation of Matter from Left Internal Jugular Vein, Percutaneous Approach (ICD-10-PCS; 2018-10-20)
PROC: 3E03317 Introduction of Other Thrombolytic into Peripheral Vein, Percutaneous Approach (ICD-10-PCS; 2018-10-20)
DX: I13.0 Hypertensive heart and chronic kidney disease with heart failure and stage 1 through stage 4 chronic kidney disease, or unspecified chronic kidney disease (principal); J96.01 Acute respiratory failure with hypoxia; I63.9 Cerebral infarction, unspecified; I50.23 Acute on chronic systolic (congestive) heart failure; I82.612 Acute embolism and thrombosis of superficial veins of left upper extremity; N17.9 Acute kidney failure, unspecified; I82.622 Acute embolism and thrombosis of deep veins of left upper extremity; I42.0 Dilated cardiomyopathy; I25.10 Atherosclerotic heart disease of native coronary artery without angina pectoris; R62.50 Unspecified lack of expected normal physiological development in childhood; E11.22 Type 2 diabetes mellitus with diabetic chronic kidney disease; N18.3 Chronic kidney disease, stage 3 (moderate); Z79.84 Long term (current) use of oral hypoglycemic drugs; Z79.01 Long term (current) use of anticoagulants; F03.90 Unspecified dementia, unspecified severity, without behavioral disturbance, psychotic disturbance, mood disturbance, and anxiety; F17.210 Nicotine dependence, cigarettes, uncomplicated; Z95.0 Presence of cardiac pacemaker; Z95.5 Presence of coronary angioplasty implant and graft
CPT/HCPCS: 36415; 37187; 37212; 37248; 37249; 71046; 75820; 76937; 80048; 80053; 80069; 82947; 83880; 84145; 84484; 85025; 85027; 85384; 85730; 92526; 92610; 93005; 93010; 93280; 93971; 96125; 96374; 97110; 97116; 97162; 97165; 97530; 97535; 99152; 99153; 99285-25; C1725; C1757; C1769; C1894; G8996; G8997; J1644; J1940; J2250; J2997; J3010; J7030; J7040; Q9967

== ENCOUNTER → 2018-12-23 | Outpatient (CLI) | payer MEDICARE ==
[~2018-12-23] MED LIST changes: +ASPI81CH PO; +ATOR10 PO; +Celexa10 MG PO; +Coreg12.5 MG PO; +METF500C PO; +MULTIVITAMIN PO; +QUET25 PO; +XARELTO20 MG PO
[2018-12-23 15:33] LABS: Appearance, Urine Clear (Clear); Bilirubin, Urine Neg (Neg); Blood, Urine Neg (Neg); Color, Urine Yellow (P-Yellow); Glucose Qualitative, Urine Neg (Neg); Ketones, Urine Neg (Neg); Leukocyte Esterase, Urine Neg (Neg); Nitrite, Urine Neg (Neg); Protein, Urine 1+ (Neg); Urobilinogen, Urine NORM (Normal)
== END | disposition home or self-care (01) ==
LOC: LAB 15:07 → LAB SHORT 15:07
PROVIDERS: Nurse Practitioner Family
DX: N39.0 Urinary tract infection, site not specified (principal)
CPT/HCPCS: 81003

== ENCOUNTER 2019-04-01 00:04 | Emergency (ER) | payer MEDICARE ==
[~2019-04-01] VITALS: Ht 172.7 cm; Wt 81.7 kg
== END 2019-04-01 01:05 | disposition home or self-care (01) ==
LOC: ER 00:04
DX: H11.32 Conjunctival hemorrhage, left eye (principal); E11.9 Type 2 diabetes mellitus without complications; I50.9 Heart failure, unspecified; F17.210 Nicotine dependence, cigarettes, uncomplicated; Z86.73 Personal history of transient ischemic attack (TIA), and cerebral infarction without residual deficits; Z79.899 Other long term (current) drug therapy
CPT/HCPCS: 99283

== ENCOUNTER 2020-09-23 10:57 | Emergency (ER) | payer MEDICARE ==
[~2020-09-23] VITALS: Ht 170.2 cm; Wt 60.8 kg
[~2020-09-23 10:57] MED LIST changes: +POTASSIUM CHLO10 MEQ PO; +VENLAFAXINE HCL75 M1 PO
== END 2020-09-23 14:03 | disposition home or self-care (01) ==
LOC: ER 10:57
DX: R41.82 Altered mental status, unspecified (principal); R53.1 Weakness; R47.81 Slurred speech; I11.0 Hypertensive heart disease with heart failure; I50.9 Heart failure, unspecified; E11.9 Type 2 diabetes mellitus without complications; I69.351 Hemiplegia and hemiparesis following cerebral infarction affecting right dominant side; I25.10 Atherosclerotic heart disease of native coronary artery without angina pectoris; F17.200 Nicotine dependence, unspecified, uncomplicated; Z66 Do not resuscitate; Z79.01 Long term (current) use of anticoagulants; Z79.84 Long term (current) use of oral hypoglycemic drugs; Z79.899 Other long term (current) drug therapy; Z95.5 Presence of coronary angioplasty implant and graft; Z95.0 Presence of cardiac pacemaker
CPT/HCPCS: 99285